=== PATIENT | male | born 1945 | race Two or more races ===

== ENCOUNTER 2024-07-03 07:35 | Emergency (ER) | payer OTHER, BC, SELFPAY ==
[2024-07-03] VITALS (10 sets, daily range): BP systolic 125–149; BP diastolic 69–92; PULSE 60–66; BMI 23.6
--- NOTE | 2024-07-03 08:11 | ED.GENMED ---
History of Present Illness
General
Chief Complaint: Fainting/Passed Out
Source: patient
Exam Limitations: none
Time Seen by Provider: 07/03/24 08:09
Nursing documentation reviewed up to this point in time: agreed with
History of Present Illness
History of Present Illness:
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 Patient reports he normally gets up at 5 AM and was doing his
normal routine had water had breakfast sitting on the toilet. He reports he had a bowel movement and was wiping himself and after started to not feel well. He was going to get up and lay on the sofa however he fell and hit his head on a glass
table. He does report his sugar after was 130.
He denies any chest pain associate with syncope. He denies any shortness of breath. Currently he is asymptomatic. He does mention that this has happened multiple times in the past and they have no diagnosis.
He is followed by cardiology AT [facility].
Review of Systems
Review of Systems
Allergies reviewed?: Yes
Other source history: family
All Other Systems: ROS reviewed and negative except as documented in HPI and ROS
Constitutional: Reports no symptoms
Respiratory: Reports no symptoms
Cardiac: Reports syncope; Denies chest pain, diaphoresis or palpitations
ABD/GI: Reports no symptoms
: Reports no symptoms
Musculoskeletal: Reports no symptoms
Phy Exam
General Physical Exam
General Presentation: no apparent distress
General age: appears stated age
General Skin: warm and dry
General Habitus: normal
General Mental: alert
General Hydration: appears well hydrated
ENT Exam
ENT Exam: EOMI and neck supple
Eye Exam
Eye Exam: PERRL, EOMI and other (2 cm linear laceration to right lateral eyebrow no bony tenderness or step off to orbit )
Eye Exam General: PERRL: bilateral and EOM intact: bilateral
Pupil Exam: Bilateral: round and reactive
Cardiovascular Exam
Cardiovascular Exam: regular rate/rhythm, no murmur and normal peripheral pulses
Pulmonary Exam
Pulmonary Exam: lungs clear and no respiratory distress
Neurological Exam
Neurological Exam: alert and oriented x3
Musculoskeletal Exam
Musculoskeletal Exam: full ROM
Skin Exam
Skin Exam: normal color and warm/dry
Psychiatric Exam
Psychiatric Exam: normal mood/affect
Course
Orders/Labs/Results
Orders:
Orders
07/03/24 07:49
Electrocardiogram (*1) Urgent
Reason for Study: Syncope
EKG- Treatment ONCE
07/03/24 07:59
Complete Blood Count/With Diff Urgent
Comprehensive Metabolic Panel Urgent
07/03/24 08:00
Troponin I Routine
07/03/24 08:40
CT Cervical Spine W/o Iv Contr Urgent
Comment:
Reason For Exam: trauma
CT Head W/o Iv Contrast Urgent
Comment:
Reason For Exam: trauma
07/03/24 09:00
Add On- LAB Urgent
Tests Added?: troponin
07/03/24 09:51
Shoulder, Right, Trauma [CR Shoulder, Trauma - Right] Urgent
Comment:
Reason For Exam: right shoulder pain after fall
07/03/24 10:11
Orthostatic VS- Treatment ONCE
07/03/24 11:06
Electrocardiogram (*1) Stat
Reason for Study: Other
Other Reason for Exam: chest pain
EKG- Treatment ONCE
07/03/24 11:08
Troponin I Urgent
07/03/24 12:14
CT Upper Ext W/o Iv Cont Rt Urgent
Comment: attn rue/shoulder
Reason For Exam: trauma
Abnormal Lab Results
07/03/24
07:59
MCHC 32.8 L g/dL
(33.0-37.0)
MPV 11.9 H fL
(7.4-10.4)
Absolute Neuts (auto) 6.9 H 10^3/uL
(1.4-6.5)
Absolute Lymphs (auto) 1.1 L 10^3/uL
(1.2-3.4)
Neutrophils % 78.6 H %
(42.2-75.2)
Lymphocytes % 12.8 L %
(20.5-51.1)
Chloride 109 H mmol/L
(98-107)
Glucose 156 H mg/dl
(70-99)
07/03/24 07:59
07/03/24 07:59
Vital Signs
Initial and Last Documented VS:
Initial Vital Signs
Temp Pulse Resp BP Pulse Ox
97.6 F 60 18 139/70 98
07/03/24 07:39 07/03/24 07:39 07/03/24 07:39 07/03/24 07:39 07/03/24 07:39
Last Documented Vital Signs
Temp Pulse Resp BP Pulse Ox
97.6 F 70 23 137/78 98
07/03/24 07:39 07/03/24 13:45 07/03/24 13:45 07/03/24 13:00 07/03/24 12:15
Technical Support Representative consulted with Physician
Technical Support Representative consulted with physician?: Yes
Name of Physician Consulted: DR Vela
MDM/Problems Addressed
Differential Diagnosis Includes:
Not limited to syncopal episode vasovagal, dehydration less likely arrhythmia given pacemaker
MDM/Problems Addressed:
Patient is a 78-year-old male with history of CAD PR pacemaker diabetes presents to the ER for syncopal episode. Patient was sitting on the toilet this morning after wiping himself felt dizzy, walking to his sofa had a syncopal episode and hit his
head. Patient had a small laceration to right lateral eyebrow which was repaired as documented. Patient's sugar was 130 prior to arrival after the incident.
He had no severe chest pain or shortness of breath prior to the event. He does complain of mild right shoulder discomfort. He denies any recent fever chills he is in no acute distress he is well-appearing.. He is afebrile on exam. His labs
unremarkable. Pacemaker was interrogated no acute findings. It was documented the patient had 1 VT episode greater than 4 beats on May 18 however nothing since.
no chest pain negative cardiac troponins x 2. EKG shows atrial paced rhythm heart rate in the 60s.
Case reviewed with ED physician.
CT head and cervical spine are negative; patient complains of mild soreness to the right shoulder no obvious tenderness on exam but pain with abduction. Shoulder x-ray questionable fracture upper extremity CAT scan was done and negative for
fracture.
Patient has been drinking and eating here in the ER and has been asymptomatic since arrival stable for discharge home with outpatient follow-up by cardiology.
*Radiology
Radiology exam reviewed: radiology read reviewed
*Pulse Oximetry
Patient hypoxic: no
*EKG
Interpreted by ED Provider?: Yes
Interpretation: abnormal
Comparison EKG: no comparison EKG present
Heart Rate: 60
Rate: normal
Rhythm: sinus and other (atrial -paced rhythm )
Ischemia: no ischemia
*Critical Care Note
Total Time (30-74mins, 75-104mins- exclusive of procedures): Not Applicable
ED Attending Note
-
Portions of this chart may have been created with voice recognition software.� Occasional wrong word or��sound alike� substitutions may have occurred due to the inherent limitations of voice recognition software.
Discharge Plan
Departure
Patient Disposition: Home (Routine Discharge)
Date of Disposition: 07/03/24
Time of Disposition: 15:01
Patient with high blood pressure during this ER visit?: Yes
Condition: Fair
Covid-19: Not Applicable
Discharge Problem:
Syncope, Contusion, Laceration
Instructions: Syncope (Fainting) (DC), BLOOD PRESSURE, Contusion, Laceration
Referrals:
UNKNOWN - PT DOES,NOT KNOW [Unknown Provider] -
Activity Restrictions/Additional Instructions:
As discussed your labs are unremarkable; there were no acute concerning findings on your pacemaker interrogation. Your CAT scans were unremarkable there is no obvious fractures.
Keep laceration clean and dry for 24 hours after 24 hours you can wash lightly with soap and water. Pat dry. glue will flake off in the next several days. Do not apply antibiotic to the area.
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
return if any worsening of symptoms
Interventions
Interventions:
*Risk Screen - Suicide Last Done: 07/03/24 07:39
*General Assessment Last Done: 07/03/24 07:39
*Neglect/Abuse Screening Last Done: 07/03/24 07:39
ED- Cardiac Assessment Last Done: 07/03/24 09:39
ED- Neurological Assessment Last Done: 07/03/24 09:39
Discharge Date and Time
Print Language: [id number]
[2024-07-03 08:16] LABS: % Basophils 0.6 % (0-2); % Eosinophils 0.3 % (0-6); % Immature Granulocytes 0.5 % (0-0.5); % Lymphocytes 12.8 % (20.5-51.1); % Monocytes 7.2 % (1.7-9.3); % Neutrophils 78.6 % (42.2-75.2); Absolute Basophils 0.1 10^3/uL (0-0.2); Absolute Lymphocytes 1.1 10^3/uL (1.2-3.4); Absolute Monocytes 0.6 10^3/uL (0.1-0.6); Absolute Neutrophils 6.9 10^3/uL (1.4-6.5); Hematocrit 51.6 % (39.0-52.0); Hemoglobin 16.9 g/dL (13.0-18.0); Mean Corp Hgb Conc. 32.8 g/dL (33.0-37.0); Mean Corpuscular Hgb 29.1 pg (27.0-31.0); Mean Corpuscular Volume 88.8 fL (80.0-94.0); Mean Platelet Volume 11.9 fL (7.4-10.4); Nucleated Red Blood Cells % 0 % (-); Platelet Count 167 10^3/uL (130-400); Red Blood Cell Count 5.81 10^6/uL (4.70-6.10); Red Cell Dist. Width 13.6 % (11.5-14.5); White Blood Cell Count 8.8 10^3/uL (4.8-10.8)
[2024-07-03 08:25] LABS: ALT (SGPT) 33 U/L (0-50); AST (SGOT) 31 U/L (17-59); Albumin 3.8 g/dl (3.5-5.0); Alkaline Phosphatase 126 U/L (38-126); Blood Urea Nitrogen 15 mg/dl (9-20); Carbon Dioxide 26 mmol/L (22-30); Chloride 109 mmol/L (98-107); Estimated Creatinine Clearance 53 ml/min; Glucose 156 mg/dl (70-99); Potassium 4.2 mmol/L (3.5-5.1); Sodium 140 mmol/L (135-145); Total Bilirubin 0.9 mg/dl (0.2-1.3); Total Protein 6.6 g/dl (6.3-8.2); eGFR > 60.00
[2024-07-03 11:38] LABS: Troponin I 0.016 ng/ml
== END 2024-07-03 15:49 | disposition home or self-care (01) ==
LOC: EMR 07:35
PROVIDERS: Emergency Medicine; Nurse Practitioner; EMERGENCY PHYSICIAN Student in an Organized Health Care Education/Training Program; FAMILY PHYSICIAN Family Medicine
DX: R55 Syncope and collapse (principal); Z95.0 Presence of cardiac pacemaker; I25.10 Atherosclerotic heart disease of native coronary artery without angina pectoris; E11.9 Type 2 diabetes mellitus without complications
CPT/HCPCS: 99285; 93288; 70450; 72125; 73030; 73200; 80053; 84484; 85025; 93005